=== PATIENT | female | born 1985 | race Caucasian/White ===

== ENCOUNTER 2016-06-09 18:12 | Emergency (ER) | payer OTHER ==
[~2016-06-09 18:12] MED LIST: APR25 PO; INSR SC; LANTI SQ; LANTUS SOLOS100 U/M1 SQ; PRO60 PO; RENA-VITE1 TAB PO; SENSIPAR30 M1 PO; TRA100 PO
[2016-06-09 19:31] LABS: BASOPHIL % 0.2 % (0-2); PLATELET COUNT 226 x10^3mcL (130-400)
[2016-06-09 19:32] LABS: microscopic required? YES; urine erythrocyte 3+ (NEGATIVE)
[2016-06-09 19:33] LABS: RED CELL DISTRIBUTION WIDTH 15.3 % (11.5-14.5)
[2016-06-09 19:47] LABS: ALKALINE PHOSPHATASE 99 U/L (46-116); ALT/SGPT 44 U/L (14-59); AMYLASE 104 U/L (25-115); AST/SGOT 39 U/L (15-37); CARBON DIOXIDE 33.5 mmol/L (21-32); CHLORIDE SERUM 102 mmol/L (98-107); LIPASE 206 IU/L (73-393); POTASSIUM SERUM 4.3 mmol/L (3.5-5.1); SODIUM SERUM 140 mmol/L (136-145); TOTAL PROTEIN, SERUM 7.5 g/dL (6.4-8.2)
[2016-06-09 19:52] LABS: GFR1 > 60 mL/min; GLUCOSE SERUM 61 mg/dL (74-106)
[2016-06-09 19:53] LABS: ALBUMIN 4.1 g/dL (3.4-5.0); CALCIUM 9.1 mg/dL (8.5-10.1)
[2016-06-09 21:44] VITALS: BP 128/85
== END 2016-06-09 21:45 | disposition left against medical advice (07) ==
LOC: ED 18:12
PROVIDERS: Emergency Medicine
DX: R10.9 Unspecified abdominal pain (principal); E11.22 Type 2 diabetes mellitus with diabetic chronic kidney disease; N18.6 End stage renal disease; G40.909 Epilepsy, unspecified, not intractable, without status epilepticus; D89.9 Disorder involving the immune mechanism, unspecified; Z79.899 Other long term (current) drug therapy
CPT/HCPCS: 82962; 83880